=== PATIENT | male | born 1950 | race Caucasian/White ===

== ENCOUNTER → 2017-03-12 | Outpatient (CLI) | payer OTHER ==
[2017-03-12 12:17] LABS: Appearance,Urine Cloudy (Clear); Bacteria,Urine Moderate /hpf; Bilirubin,Urine Negative (Negative); Blood,Urine Moderate (Negative); Color,Urine Light Yellow; Glucose,Urine (UA) 4+ (Negative); Ketones,Urine Negative (Negative); Leukocyte Esterase,Urine Large (Negative); Nitrite,Urine Negative (Negative); PH, Urine 5.5 (5.0-8.0); Protein,Urine Negative (Negative); RBC,Urine 26 /hpf (0-5); Specific Gravity,Urine 1.018 (1.001-1.035); Urobilinogen,Urine <2.0 mg/dL (<2.0); WBC,Urine >182 /hpf (0-5)
[2017-03-12 12:33] LABS: Basophils % (A) 0 %; Eosinophils # (A) 0.1 k/uL (0-0.7); Eosinophils % (A) 2 %; HCT 43.8 % (39.0-53.0); HGB 14.3 gm/dL (13.0-17.5); Lymphocytes # (A) 1.2 k/uL (1.0-4.8); Lymphocytes % (A) 15 %; MCH 30.6 pg (25.0-35.0); MCHC 32.7 g/dL (31.0-37.0); MCV 93.3 fL (80.0-100.0); Mean Platelet Volume 6.5; Monocytes # (A) 0.4 k/uL (0-1.0); Monocytes % (A) 5 %; Neutrophils # (A) 5.8 k/uL (1.3-7.7); Neutrophils % (A) 77 %; Platelet Count 283 k/uL (150-450); RBC 4.69 m/uL (4.30-5.90); RDW 12.7 % (11.5-15.5); WBC 7.6 k/uL (3.8-10.6)
[2017-03-12 12:41] LABS: Anion Gap 12 mmol/L; Blood Urea Nitrogen 24 mg/dL (9-20); Calcium 9.9 mg/dL (8.4-10.2); Carbon Dioxide 29 mmol/L (22-30); Chloride 99 mmol/L (98-107); Glucose 170 mg/dL (74-99); Potassium 5.3 mmol/L (3.5-5.1); Sodium 140 mmol/L (137-145)
== END | disposition home or self-care (01) ==
LOC: LABPAT 11:08
PROVIDERS: ATTEND Urology
DX: Z01.818 Encounter for other preprocedural examination (principal); I10 Essential (primary) hypertension; N40.1 Benign prostatic hyperplasia with lower urinary tract symptoms; E11.9 Type 2 diabetes mellitus without complications; R35.0 Frequency of micturition
CPT/HCPCS: 36415; 80048; 81001; 85025; 87077; 87086; 87186; 93005

== ENCOUNTER → 2017-03-31 | Outpatient (CLI) | payer OTHER | END | disposition home or self-care (01) | LOC: LABPAT 10:50 | PROVIDERS: ATTEND Urology | DX: Z53.9 Procedure and treatment not carried out, unspecified reason (principal) ==

== ENCOUNTER 2017-04-02 05:46 | Observation (INO) | payer OTHER ==
[2017-03-31 09:12] VITALS: BMI 27.4
[~2017-04-02 05:46] MED LIST: ceFAZolin IN SWFI 2 GM/20 ML SYRINGE IVP ONE
[2017-04-02] MEDS ORDERED: MIDAZOLAM 2 MG/2 ML VIAL IV PRN (06:01)
[2017-04-02] MEDS ORDERED: HYDROmorphone 0.5 MG/0.5 ML SYRINGE IVP PRN (06:01)
[2017-04-02] MEDS ORDERED: ONDANSETRON 4 MG/2 ML VIAL IVP ONE (06:01)
[2017-04-02] MEDS ORDERED: DEXAMETHASONE SOD PHOSPHATE 10 MG/ML 1 ML VIAL IV ONE (06:01)
[2017-04-02 06:36] LABS: Glucose,Whole Blood 161 mg/dL (75-99)
[2017-04-02] MEDS: LACTATED RINGERS 1,000 ML IV SCH (06:39)
[2017-04-02] MEDS ORDERED: PROPOFOL 10 MG/ML 20 ML VIAL IV ONE (07:25)
[2017-04-02] MEDS ORDERED: PHENYLEPHRINE-0.9% NACL SYG 1 MG/10 ML SYRINGE ONE (07:25)
[2017-04-02] MEDS ORDERED: fentaNYL (PF) 50 MCG/ML 2 ML AMP ONE (07:25)
[2017-04-02] MEDS ORDERED: LIDOCAINE 1% INJ 10MG/ML (20 ML MDV) ONE (07:25)
[2017-04-02] MEDS ORDERED: MIDAZOLAM 2 MG/2 ML VIAL ONE (07:25)
[2017-04-02] MEDS ORDERED: MORPHINE SULFATE (PF) 0.3 MG/0.3 ML SYR ONE (07:25)
[2017-04-02] MEDS ORDERED: LACTATED RINGERS 1,000 ML IV ONE ×2 (07:51→08:45)
[2017-04-02] MEDS ORDERED: MAG HYDROX/AL HYDROX/SIMETH 30 ML CUP PO PRN (09:12)
[2017-04-02] MEDS ORDERED: BELLADONNA-OPIUM 16.2-60 MG 1 EACH SUPP RECTAL PRN (09:12)
[2017-04-02] MEDS ORDERED: HYDROmorphone PCA 5 MG/25 ML SYRINGE IV PRN (09:15)
[2017-04-02] MEDS ORDERED: KETOROLAC 30 MG/ML 1 ML VIAL IVP PRN (09:15)
[2017-04-02] MEDS ORDERED: ONDANSETRON 4 MG/2 ML VIAL IVP PRN (09:15)
[2017-04-02] MEDS ORDERED: NALOXONE 0.4 MG/ML 1 ML VIAL IV PRN (09:15)
--- NOTE | 2017-04-02 09:22 | P.OP ---
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 He has been on oral medication with limited success. He has 110 mL prostate. We discussed treatment options and he is chosen suprapubic prostatectomy. He comes for this surgery. Description of Procedure: the patient is brought to the operating suite he is given a successful spinal anesthesia augmented by sedation on the operating table. He is prepped and draped sterilely. A midline incision from pubis to below the umbilicus is made. The rectus fascias identified and opened in the midline. The prevesical space is identified and opened. The bladder is identified and Allis clamps are placed on the bladder. The bladder is opened and about 500 mL of clear urine is drained. After adequate retraction the prostate with intravesical middle lobe was identified. The ureteral orifices are identified. Circumferentially around the prostate ice score an open the mucosa of the bladder. A make sure not to injure the ureteral orifices. I then pass my index finger through the opening of the prostate into the prostatic bed. I cracked the prostate anteriorly any nucleate the prostate out of the bed. I then reapproximate the bladder mucosa to the true prostate circumferentially around the bladder neck to control bleeding. This does this nicely. I then place a 20-Mongolian 30 mL balloon per urethra and place it on tension prostate. I'm bringing an 18- Mongolian 5 mL balloon suprapubic tube through a separate incision lateral the rectus into the bladder. I then closed the bladder in 2 layers with 30 and then 2-0 Vicryl. I irrigate the catheter and there are no clots. The urine is clear to light pink. A Johnny-Lagunas drain is brought through separate stab incision. The rectus fascias closed with a double-stranded 0 PDS. Skin is stapled. The suprapubic and drain are secured with 2-0 silk. I used continuous irrigation through the suprapubic tube and out the urethral catheter. The patient tolerated procedure well be placed in the hospital postoperatively. Blood loss is about 800 mL.
[2017-04-02 09:24] LABS: Glucose,Whole Blood 179 mg/dL (75-99)
[2017-04-02] MEDS: SODIUM CHLORIDE 0.9% IRRIGATIO 1,000 ML IRRIGATION SCH ×3 (14:33→19:32)
[2017-04-02 19:48] LABS: Glucose,Whole Blood 173 mg/dL (75-99)
[2017-04-02] MEDS: SODIUM CHLORIDE 0.45% 1,000 ML IV SCH (19:48)
[2017-04-02] MEDS: CIPROFLOXACIN HCL 500 MG TAB PO SCH (19:50)
[2017-04-02] MEDS: DOCUSATE 100 MG CAP PO SCH (19:50)
[2017-04-02] MEDS: ATORVASTATIN 20 MG TAB PO SCH (19:50)
[2017-04-03] MEDS: SODIUM CHLORIDE 0.9% IRRIGATIO 1,000 ML IRRIGATION SCH ×2 (02:20)
[2017-04-03 07:14] LABS: Glucose,Whole Blood 135 mg/dL (75-99)
--- NOTE | 2017-04-03 07:28 | P.PN ---
Progress Note - Text Progress Note Date: 04/03/17 the patient is afebrile and normotensive. He is tolerating liquids and wants a regular diet. His pain has been tolerable with the CONTROL ENGINEER and Toradol. There has been minimal drainage through the Johnny-Lagunas drain. The patient remains on continuous bladder irrigation and his urine at the present time with this is pink in color but free of clots. Impression: Good recovery so far following suprapubic prostatectomy Plan: The patient's diet and activity will be increased. If his urine clears his continuous bladder irrigation will be reduced or discontinued. The patient may be ready for discharge tomorrow.
[2017-04-03] MEDS: LOSARTAN 25 MG TAB PO SCH (08:09)
[2017-04-03] MEDS: DOCUSATE 100 MG CAP PO SCH ×2 (08:09→21:03)
[2017-04-03] MEDS: CIPROFLOXACIN HCL 500 MG TAB PO SCH ×2 (08:09→21:03)
--- NOTE | 2017-04-03 09:18 | P.PN ---
Progress Note - Text Anesthesia POD 1. Patient is status post suprapubic prostatectomy under spinal anesthesia with sedation with intra-thecal preservative free morphine approximately 100 g. No pruritus, less than optimal post-op analgesia, and no headache or other complications During the administration of the spinal anesthetic the syringe became detached from the spinal needle and approximately two thirds of the local anesthetic and morphine dose was lost. A Marcaine dose approximating that which was lost was then drawn up and injected providing good surgical anesthesia however, since there was no more preservative free morphine readily available and since the spinal needle was still in the subarachnoid space no additional preservative free morphine was injected with the M.D. additional local anesthetic. This probably accounts for the less than optimal extended postop analgesia that we usually see with a normal dose of intrathecal preservative free morphine.
[2017-04-03] MEDS: Empagliflozin [Jardiance] PO SCH (09:37)
[2017-04-03] MEDS: SODIUM CHLORIDE 0.9% 1,000 ML IRRIGATION NR ×2 (11:02→21:02)
[2017-04-03 11:32] LABS: Glucose,Whole Blood 173 mg/dL (75-99)
[2017-04-03] MEDS: SODIUM CHLORIDE 0.45% 1,000 ML IV SCH ×2 (13:29)
[2017-04-03 16:57] LABS: Glucose,Whole Blood 168 mg/dL (75-99)
[2017-04-03] MEDS ORDERED: METOCLOPRAMIDE 5 MG/ML 2 ML VIAL IVP PRN (19:32)
[2017-04-03 20:13] LABS: Glucose,Whole Blood 137 mg/dL (75-99)
[2017-04-03] MEDS: LACTATED RINGERS 1,000 ML IV SCH (21:01)
[2017-04-03] MEDS: ATORVASTATIN 20 MG TAB PO SCH (21:03)
[2017-04-04] MEDS: SODIUM CHLORIDE 0.9% 1,000 ML IRRIGATION NR (04:26)
[2017-04-04] MEDS: SODIUM CHLORIDE 0.9% IRRIGATIO 1,000 ML IRRIGATION SCH ×4 (04:26→11:11)
[2017-04-04] MEDS: SODIUM CHLORIDE 0.45% 1,000 ML IV SCH ×2 (04:27→17:32)
[2017-04-04 07:18] LABS: Glucose,Whole Blood 96 mg/dL (75-99)
[2017-04-04] MEDS: LACTATED RINGERS 1,000 ML IV SCH (08:34)
--- NOTE | 2017-04-04 08:37 | P.PN ---
Subjective Progress Note Date: 04/04/17 the patient is in his second postoperative day from a suprapubic prostatectomy. His pain is minimal. The urine is cleared nicely. I will place both catheters to gravity drainage. If it remains clear I'll remove the urethral catheter tomorrow he may be discharged home tomorrow. Vital signs are stable. Objective - Vital Signs Vital signs: Vital Signs Temp 98.5 F 04/04/17 07:00 Pulse 89 04/04/17 07:00 Resp 18 04/04/17 07:00 BP 119/68 04/04/17 07:00 Pulse Ox 94 L 04/04/17 07:00 Intake & Output 04/03/17 04/04/17 04/04/17 18:59 06:59 18:59 Intake Total 6485 3800 200 Output Total 4650 5100 Balance 1835 -1300 200 Intake: IV 4100 2900 continuous bladder 4100 2900 irrigation Intake, IV Titration 1425 900 Amount Sodium Chloride 0.45% 1, 1425 900 000 ml @ 75 mls/hr IV . [id number] [facility] Rx#:[id number] Oral 960 200 Output: Urine 4650 5100 Other: Voiding Method Indwelling Catheter Indwelling Catheter - Labs CBC & Chem 7: 04/02/17 06:30 Labs: Abnormal Lab Results - Last 24 Hours (Table) 04/03/17 04/03/17 04/03/17 Range/Units 11:29 16:38 20:03 POC Glucose (mg/dL) 173 H 168 H 137 H (75-99) mg/dL
[2017-04-04] MEDS: Empagliflozin [Jardiance] PO SCH (08:46)
[2017-04-04] MEDS: CIPROFLOXACIN HCL 500 MG TAB PO SCH ×2 (08:46→20:09)
[2017-04-04] MEDS: DOCUSATE 100 MG CAP PO SCH ×2 (08:47→20:09)
[2017-04-04] MEDS: LOSARTAN 25 MG TAB PO SCH (08:47)
[2017-04-04 11:16] LABS: Glucose,Whole Blood 143 mg/dL (75-99)
[2017-04-04 16:57] LABS: Glucose,Whole Blood 115 mg/dL (75-99)
[2017-04-04 19:59] LABS: Glucose,Whole Blood 198 mg/dL (75-99)
[2017-04-04] MEDS: ATORVASTATIN 20 MG TAB PO SCH (20:09)
[2017-04-05 07:09] LABS: Glucose,Whole Blood 116 mg/dL (75-99)
[2017-04-05 07:56] VITALS: BP 123/76; PULSE 85; RESP 20; TEMP 98
[2017-04-05] MEDS: LACTATED RINGERS 1,000 ML IV SCH (07:57)
[2017-04-05] MEDS: DOCUSATE 100 MG CAP PO SCH (08:08)
[2017-04-05] MEDS: SODIUM CHLORIDE 0.45% 1,000 ML IV SCH (08:08)
[2017-04-05] MEDS: CIPROFLOXACIN HCL 500 MG TAB PO SCH (08:08)
[2017-04-05] MEDS: Empagliflozin [Jardiance] PO SCH (08:09)
[2017-04-05] MEDS: LOSARTAN 25 MG TAB PO SCH (08:11)
[2017-04-05 10:47] LABS: Glucose,Whole Blood 258 mg/dL (75-99)
== END 2017-04-05 12:35 | disposition home or self-care (01) ==
LOC: OR 05:46 → EDSTATUS 07:30 → 3SUR 08:59 → OR 21:46 → 3SUR 21:46
PROVIDERS: ADMIT Urology; ATTEND Urology
DX: N40.1 Benign prostatic hyperplasia with lower urinary tract symptoms (principal); N41.0 Acute prostatitis; N13.8 Other obstructive and reflux uropathy; R39.14 Feeling of incomplete bladder emptying; I10 Essential (primary) hypertension; E78.00 Pure hypercholesterolemia, unspecified; E11.9 Type 2 diabetes mellitus without complications; Z79.899 Other long term (current) drug therapy; Z83.3 Family history of diabetes mellitus; Z82.49 Family history of ischemic heart disease and other diseases of the circulatory system
CPT/HCPCS: 55821; 86900; 86901; 84132; 86850; 88307; 36415; G0378 ×4; J2250; J1100; J2765; J2405 ×2; J2001; J2274; J3010; J1170; J2370; J2704; J0690

== ENCOUNTER → 2019-02-17 | Outpatient (CLI) | payer MEDICARE ==
--- NOTE | 2019-02-17 13:32 | XR ---
EXAMINATION TYPE: XR shoulder complete RT DATE OF EXAM: 02/17/2019 COMPARISON: NONE HISTORY: Pain TECHNIQUE: Shoulder examined in 3 views FINDINGS: The humeral head articulates with the glenoid. The acromio-clavicular junction is normal. No acute fractures or dislocations are evident. A follow up study can be performed 7-10 days from acute trauma for continued pain. IMPRESSION: 1. Normal three-view right Shoulder
== END | disposition home or self-care (01) ==
LOC: RADXRMAIN 12:57
PROVIDERS: ATTEND Family Medicine
DX: M24.811 Other specific joint derangements of right shoulder, not elsewhere classified (principal)

== ENCOUNTER → 2020-08-01 | Outpatient (CLI) | payer MEDICARE ==
--- NOTE | 2020-08-18 12:23 | EM ---
EVENT MONITOR AGE:: @@ SEX:: @@ INDICATIONS:: @@ CLINICAL COURSE: The patient was monitored between the and 15 August 2020. The rhythm strip revealed sinus mechanism with normal conduction. No atrial fibrillation was noted. Single PVCs and PACs were noted. No pauses were noted. LISA / HUY: [id number] /
== END | disposition home or self-care (01) ==
LOC: RADECHMAIN 12:04
PROVIDERS: ATTEND Family Medicine
DX: I48.91 Unspecified atrial fibrillation (principal)
CPT/HCPCS: 93270

== ENCOUNTER → 2023-10-09 | Outpatient (CLI) | payer MEDICARE | END | disposition home or self-care (01) | LOC: LABPRL 07:30 | PROVIDERS: ATTEND Family Medicine | DX: E11.9 Type 2 diabetes mellitus without complications (principal) | CPT/HCPCS: 82043; 82570 ==